=== PATIENT | male | born 1955 | race Caucasian/White ===

== ENCOUNTER → 2016-11-03 | Outpatient (CLI) | payer BC ==
--- NOTE | 2016-11-03 13:58 | CT ---
EXAMINATION TYPE: CT chest w con DATE OF EXAM: 11/03/2016 1:24 PM COMPARISON: CT neck 01/28/[address] 03/26/2016. HISTORY: 61-year-old male has no complaints at time of study. Follow up study for thymic CA. TECHNIQUE: Contiguous axial scanning of the chest after the administration of 100 mL of Omnipaque 300 . Coronal/sagittal reconstructions performed. CT DLP: 565mGycm. Automatic exposure control utilized for a dose reduction. FINDINGS: The heart is normal size without pericardial effusion. Minimal LAD calcifications are noted. Mild ectasia ascending aorta 3.6 cm. There is variant direct takeoff of the left vertebral artery dir ectly from the aortic arch. Mild tortuosity of the descending thoracic aorta is noted. No thoracic lymphadenopathy. There is some distortion of the anterior mediastinal fat, for example, axial image 24 suggesting prior surgical changes. Mild diffuse bronchial wall thickening. No consolidation or pleural effusion. There is a 6 mm left mi dlung pulmonary nodule along the major fissure which appears to have been present on the nondiagnosti c 03/26/[address] and should continue to be followed. Visualized upper abdomen shows a small hiatal hernia. Bones: Endplate spondylosis mid to lower thoracic spine. No osseous destructive process. IMPRESSION: 1. No suspicious mediastinal mass to suggest residual or recurrent thymic neoplasm. 2. A 6 mm left midlung pulmonary nodule is stable in retrospect from the nondiagnostic planning CT of 03/26/2016. Recommend continued follow-up to ensure 2 years of stability and a benign etiology. This can be performed at 6 and 18 months. 3. We note multiple prior CTs of the patient's neck. No dedicated prior CT of the chest is available. Clinical correlation is recommended as we were unable to obtain accurate history as to the reason fo r the patient's outside CT neck exams at the time of dictation.
== END | disposition home or self-care (01) ==
LOC: RADCTMAIN 12:53
PROVIDERS: ATTEND Radiology Radiation Oncology
DX: R91.1 Solitary pulmonary nodule (principal); D15.0 Benign neoplasm of thymus
CPT/HCPCS: 71260; Q9967

== ENCOUNTER → 2017-07-23 | Outpatient (CLI) | payer BC ==
[2017-07-23 09:22] LABS: Basophils % (A) 1 %; Eosinophils # (A) 0.3 k/uL (0-0.7); Eosinophils % (A) 6 %; HGB 11.9 gm/dL (13.0-17.5); Lymphocytes # (A) 0.9 k/uL (1.0-4.8); Lymphocytes % (A) 18 %; MCHC 31.4 g/dL (31.0-37.0); MCV 92.2 fL (80.0-100.0); Mean Platelet Volume 6.6; Monocytes # (A) 0.3 k/uL (0-1.0); Monocytes % (A) 5 %; Neutrophils # (A) 3.6 k/uL (1.3-7.7); Neutrophils % (A) 68 %; Platelet Count 555 k/uL (150-450); RBC 4.12 m/uL (4.30-5.90); RDW 13.8 % (11.5-15.5); WBC 5.3 k/uL (3.8-10.6)
[2017-07-23 10:49] LABS: ALT 35 U/L (21-72); AST 19 U/L (17-59); Albumin 4.1 g/dL (3.5-5.0); Alkaline Phosphatase 69 U/L (38-126); Anion Gap 11 mmol/L; Bilirubin, Delta 0.2 mg/dL (0.0-0.2); Bilirubin,Unconjugated 0.4 mg/dL (0.0-1.1); Blood Urea Nitrogen 17 mg/dL (9-20); Calcium 9.9 mg/dL (8.4-10.2); Carbon Dioxide 30 mmol/L (22-30); Chloride 104 mmol/L (98-107); Cholesterol 229 mg/dL (<200); Glucose 108 mg/dL (74-99); HDL Cholesterol 47 mg/dL (40-60); LDL Cholesterol,Calculated 169 mg/dL (0-99); Potassium 5.1 mmol/L (3.5-5.1); Sodium 145 mmol/L (137-145); Total Bilirubin 0.6 mg/dL (0.2-1.3); Triglycerides 65 mg/dL (<150)
[2017-07-23 11:00] LABS: T4, Free (Free Thyroxine) 0.82 ng/dL (0.78-2.19)
[2017-07-23 11:14] LABS: PSA Annual Screen 1.02 ng/mL (0.00-4.00)
[2017-07-23 16:25] LABS: Hemoglobin A1C 5.2 % (4.0-6.0)
== END | disposition home or self-care (01) ==
LOC: LABWHC1 08:49
PROVIDERS: ATTEND Internal Medicine Critical Care Medicine
DX: Z00.00 Encounter for general adult medical examination without abnormal findings (principal); C37 Malignant neoplasm of thymus; E55.9 Vitamin D deficiency, unspecified; Z12.5 Encounter for screening for malignant neoplasm of prostate; Z79.899 Other long term (current) drug therapy
CPT/HCPCS: 84439; 84481; 80061; 80053; 82248; 84443; 85025; 82306; 83036; 36415; G0103

== ENCOUNTER → 2017-08-06 | Outpatient (CLI) | payer BC ==
[2017-08-06 12:38] LABS: HCT 39.6 % (39.0-53.0); HGB 12.7 gm/dL (13.0-17.5); MCH 29.4 pg (25.0-35.0); MCHC 32.2 g/dL (31.0-37.0); MCV 91.3 fL (80.0-100.0); Mean Platelet Volume 6.2; Platelet Count 283 k/uL (150-450); RBC 4.33 m/uL (4.30-5.90); RDW 12.8 % (11.5-15.5); WBC 5.9 k/uL (3.8-10.6)
[2017-08-06 12:41] LABS: Partial Thromboplastin Time 24.3 sec (22.0-30.0)
[2017-08-06 12:43] LABS: Amorphous Sediment,Urine Rare /hpf; Appearance,Urine Cloudy (Clear); Bacteria,Urine Moderate /hpf; Bilirubin,Urine Negative (Negative); Blood,Urine Negative (Negative); Color,Urine Yellow; Glucose,Urine (UA) Negative (Negative); Ketones,Urine Negative (Negative); Leukocyte Esterase,Urine Negative (Negative); Mucus,Urine Rare /hpf; Nitrite,Urine Negative (Negative); PH, Urine 6.5 (5.0-8.0); Protein,Urine Trace (Negative); RBC,Urine 2 /hpf (0-5); Specific Gravity,Urine 1.018 (1.001-1.035); Squamous Epithelial Cell,Urine <1 /hpf (0-4); Urobilinogen,Urine <2.0 mg/dL (<2.0); WBC,Urine 3 /hpf (0-5)
[2017-08-06 12:52] LABS: ALT 40 U/L (21-72); AST 26 U/L (17-59); Albumin 4.5 g/dL (3.5-5.0); Alkaline Phosphatase 74 U/L (38-126); Anion Gap 11 mmol/L; Blood Urea Nitrogen 17 mg/dL (9-20); Calcium 9.8 mg/dL (8.4-10.2); Carbon Dioxide 29 mmol/L (22-30); Chloride 102 mmol/L (98-107); Glucose 100 mg/dL (74-99); Potassium 4.7 mmol/L (3.5-5.1); Sodium 142 mmol/L (137-145); Total Bilirubin 0.7 mg/dL (0.2-1.3); Total Protein 7.2 g/dL (6.3-8.2)
== END | disposition home or self-care (01) ==
LOC: LABPAT 11:25
PROVIDERS: ATTEND Orthopaedic Surgery
DX: Z01.818 Encounter for other preprocedural examination (principal); Z01.812 Encounter for preprocedural laboratory examination
CPT/HCPCS: 80053; 81001; 85027; 85610; 85730; 87070; 93005

== ENCOUNTER 2017-08-25 09:35 | Inpatient (IN) | payer BC ==
[~2017-08-25 09:35] MED LIST: ACETAMINOPHEN TAB 500 MG TAB PO ONE; DEXAMETHASONE SOD PHOSPHATE 10 MG/ML 1 ML VIAL IV ONE; LACTATED RINGERS 1,000 ML IV SCH; MELOXICAM 7.5 MG TAB PO ONE; MIDAZOLAM 2 MG/2 ML VIAL IV PRN; MORPHINE SULFATE 4 MG/ML SYRINGE IV PRN; ONDANSETRON 4 MG/2 ML VIAL IVP ONE; ROPIVACAINE 246.25 MG, EPINEPHrine 0.5 MG, KETOROLAC 30 MG, cloNIDine HCL/PF 80 MCG, WA... MISCELLANE ONE; SCOPOLAMINE 1.5MG/72HR PATCH TRANSDERM ONE; TRANEXAMIC ACID 1,000 MG in SODIUM CHLORIDE 0.9% 50 ML IVPB ONE; ceFAZolin IN SWFI 2 GM/20 ML SYRINGE IVP ONE
[2017-08-25] MEDS ORDERED: LIDOCAINE 1% 20 ML VIAL (10MG/ML) FOR IV START INTRADERMA ONE (10:01)
[2017-08-25] MEDS ORDERED: MIDAZOLAM 2 MG/2 ML VIAL IVP ONE ×2 (10:34→10:43)
[2017-08-25] MEDS ORDERED: ROPIVACAINE 1,100 MG, SODIUM CHLORIDE 0.9% 330 ML MISCELLANE PRN ×2 (10:51)
--- NOTE | 2017-08-25 10:52 | P.ONQ ---
Anesthesiology Proc Note - PNB - Peripheral Nerve Block Performed Left Adductor Canal Indication: Acute Post-Operative Pain, Requested by physician (Dr Juanjose Kelly ) Sedation Type: Sedate with meaningful contact maintained Preparation: Sterile Dressing Position: Supine Catheter: Indwelling Needle Types: Other (see comment) (Sandy) Needle Size: 100mm (4") Needle Gauge: 18 Technique: Ultrasound Injectate: 0.5% Ropivacaine (see comment for volume) (20cc) Blood Aspirated: No Pain Paresthesia on Injection Noted: No Resistance on Injection: Normal Events: Uneventful and Well Tolerated
[2017-08-25] MEDS ORDERED: KETAMINE 10 MG/ML 20 ML VIAL ONE (11:00)
[2017-08-25] MEDS ORDERED: MIDAZOLAM 2 MG/2 ML VIAL ONE (11:00)
[2017-08-25] MEDS ORDERED: PROPOFOL 10 MG/ML 20 ML VIAL IV ONE (11:00)
[2017-08-25] MEDS ORDERED: TRANEXAMIC ACID 1,000 MG/10 ML VIAL ONE (11:00)
[2017-08-25] MEDS ORDERED: fentaNYL (PF) 50 MCG/ML 2 ML AMP ONE (11:00)
[2017-08-25] MEDS ORDERED: SODIUM CHLORIDE 0.9% 100 ML BAG ONE (11:00)
[2017-08-25] MEDS ORDERED: ePHEDrine SULFATE/0.9% NACL/PF 50 MG/5 ML SYRINGE IV ONE (11:00)
[2017-08-25] MEDS ORDERED: GLYCOPYRROLATE 0.2 MG/ML 2 ML VIAL ONE (11:00)
[2017-08-25] MEDS ORDERED: LACTATED RINGERS 1,000 ML IV ONE ×2 (12:11)
[2017-08-25] MEDS ORDERED: ceFAZolin 1,000 MG in SODIUM CHLORIDE 0.9% 1,000 ML IRRIGATION ONE ×2 (12:19→12:20)
--- NOTE | 2017-08-25 12:42 | P.OP ---
Date of Procedure: 08/25/17 Preoperative Diagnosis: Severe osteoarthritis left knee Postoperative Diagnosis: Severe osteoarthritis left knee Procedure(s) Performed: Left total knee arthroplasty Implants: Conroy [employer] Nephew Oxinium femoral component size 7, left Conroy & Nephew Naomie II left nonporous tibial baseplate size 8 Conroy [employer] Nephew size 9 mm Legion XLPE dished articular insert, size 7-8 Conroy [employer]hew Naomie II resurfacing patellar component, 32 mm All components were cemented using Rohan bone cement.. The articulation is Oxinium on polyethylene. Anesthesia: spinal Surgeon: Juanjose Kelly Superintendent Renting Managing #1: Luli Wiggins Estimated Blood Loss (ml): 50 Pathology: other (Bone and cartilage) Condition: stable Disposition: PACU Indications for Procedure: After failure of conservative treatment we discussed the surgical and nonsurgical treatment options at length. Patient wishes to proceed with a total knee arthroplasty. Complications specific to this procedure were discussed at length, including but not limited to infection, bleeding, stiffness , and nerve injury. Patient is aware of all these complications and informed consent was obtained Operative Findings: The operative findings are consistent with severe osteoarthritis of the left knee Description of Procedure: Patient was seen in the preoperative area consent was reviewed and operative site was marked with a skin marker. An adductor canal pain catheter was placed by anesthesia in the preoperative area. Patient was then brought to the operating room and given preoperative antibiotics intravenously. A spinal anesthetic was administered by the anesthesia department. A tourniquet was placed on the upper thigh and the lower extremity was prepped and draped in usual sterile fashion. A gram of transexamic acid was given. A universal timeout was then performed which confirmed the patient's name, surgical site, ALLERGIES, and consent. The lower extremity was then exsanguinated and tourniquet was inflated to 250 mmHg. A standard and anterior midline approach to the knee was performed. The skin and subcutaneous tissue was dissected down to the patellar tendon. A medial parapatellar arthrotomy was then performed. The knee was then extended, the patellar was everted, and the knee was again flexed. Anterior horns of both menisci were excised, and a release was performed to the posterior medial aspect of the knee. On gross visual inspection, there was complete loss of articular cartilage in the medial and patellofemoral joint spaces. There was also significant cartilage damage in the lateral compartment. There were multiple periarticular osteophytes which were then removed with a Ronguer. The femoral canal was then opened with the appropriate drill, and the intramedullary femoral cutting guide was then placed and set for 4 of valgus. The distal femoral cutting block was then pinned in place, and the distal femur was then cut. The cutting block was then removed and the cut was checked for flatness. Next, the sizing guide was then placed and set for 3 external rotation based off of the epicondylar axis and Whitesides line. After the femur was sized, the appropriate 4-in-1 cutting block was then pinned in place. The anterior condyles were cut without notching. The posterior and chamfer cuts were performed while protecting the collateral ligaments. The cutting block was then removed, and the femoral canal was plugged with autologous bone. Attention was then directed to the tibia. The remaining ACL was removed with a Ronguer, and the tibia was then gently subluxed forward with a large bent knee retractor. Any remaining menisci was excised. The posterior lateral corner was cauterized in order to cauterize the lateral geniculate artery. The extra medullary tibial cutting guide was then placed, set for the appropriate rotation , slope, and depth of resection. The proximal tibia cutting guide was then pinned in place. Proximal tibia was then cut and sized. Next trials were then placed with the appropriate-sized insert. The knee was able to fully extend and flex to 130 and was stable throughout all range of motion. The knee was then extended, patella everted. Patella was then measured, and then using an osteotomy guide, the patella was cut at the appropriate level. The patella was then measured and drilled and the patella trial was then placed. The knee was then taken through range of motion with the patella trial and the patella tracked normally. The knee was then extended patella trial was then removed and the patella was everted. Knee was then flexed and lug holes were drilled through the femoral trial and the femoral trial was then removed. The tibial was then exposed, and the tibial broach guide was then pinned in place after it was set for the appropriate rotation to allow for the most coverage without overhang. The tibia was then reamed and broached. The cut surfaces of bone were then irrigated with pulsatile lavage. The posterior structures were injected with the ropivacaine solution. The knee was also irrigated with Irrisept solution. The components were then opened, the cement was mixed, and the components were then cemented in place. The cement was allowed to harden with the knee in full extension. While the cement was hardening, the remaining soft tissues were then injected with a ropivacaine solution, which consisted of 246.25 mg of ropivacaine, 0.5 mg of epinephrine, 30 mg of Toradol, 80 g of clonidine, and 48.45 mL of sterile water, for a total of 100 mL of fluid injected. After the cemented hardened. The tourniquet was released, and hemostasis was obtained. A second gram of transexamic acid was given. The knee was again irrigated. The knee was again taken through range of motion and found to be stable throughout all range of motion of 0-130 , and the patella tracked normally. The fascia was then closed with #2 strata fix suture. The subcutaneous tissue was closed with 3-0 Vicryl and 3-0 strata fix. Dermabond glue was used for the skin and placed with the knee in flexion. The patient was placed in a sterile silver dressing. Patient was then transferred to recovery room in stable condition. The actuarial assistant ONUR Leonard was required due the complexity surgery and the need for a skilled surgical instrument maker. She assisted in positioning, draping, retraction, and closure of the wound.
[2017-08-25] MEDS ORDERED: DIAZEPAM 5 MG TAB PO PRN ×2 (12:54)
[2017-08-25] MEDS ORDERED: HYDROmorphone 0.5 MG/0.5 ML SYRINGE IVP PRN ×2 (12:54)
[2017-08-25] MEDS ORDERED: NA PHOS,M-B/NA PHOS,DI-BA 133 ML ENEMA RECTAL PRN (12:54)
[2017-08-25] MEDS ORDERED: ONDANSETRON 4 MG/2 ML VIAL IVP PRN (12:54)
[2017-08-25] MEDS ORDERED: BISACODYL 10 MG SUPP RECTAL PRN (12:54)
[2017-08-25] MEDS ORDERED: NALOXONE 0.4 MG/ML 1 ML VIAL IV PRN (12:54)
[2017-08-25] MEDS ORDERED: HYDROcodone/APAP 5-325MG 1 EACH TAB PO PRN (12:54)
[2017-08-25] MEDS ORDERED: MAGNESIUM HYDROXIDE 2,400 MG/10 ML CUP PO PRN (12:54)
--- NOTE | 2017-08-25 13:48 | XR ---
EXAMINATION TYPE: XR knee limited LT DATE OF EXAM: 08/25/2017 CLINICAL HISTORY: Postoperative evaluation Two views of the left knee are submitted. Identified are changes of total knee arthroplasty with fem oral and tibial components appearing well seated. Postsurgical soft tissue changes are noted. Align ment is anatomic.
[2017-08-25 16:59] VITALS: BMI 26.9
[2017-08-25] MEDS: SODIUM CHLORIDE 0.9% 1,000 ML IV SCH (17:13)
[2017-08-25] MEDS: HYDROcodone/APAP 5-325MG 1 EACH TAB PO PRN ×2 (17:21→23:26)
[2017-08-25] MEDS: hydrOXYzine PAMOATE 25 MG CAP PO PRN ×2 (17:22→23:26)
[2017-08-25] MEDS: ceFAZolin IN SWFI 2 GM/20 ML SYRINGE IVP SCH (20:54)
[2017-08-25] MEDS: ASPIRIN 325 MG TAB PO SCH (20:54)
[2017-08-25] MEDS ORDERED: SENNOSIDES-DOCUSATE SODIUM 1 EACH TAB PO SCH (21:00)
[2017-08-26] MEDS: hydrOXYzine PAMOATE 25 MG CAP PO PRN ×2 (04:57→13:30)
[2017-08-26] MEDS: HYDROcodone/APAP 5-325MG 1 EACH TAB PO PRN ×2 (04:57→13:29)
[2017-08-26] MEDS: ceFAZolin IN SWFI 2 GM/20 ML SYRINGE IVP SCH (04:58)
[2017-08-26] MEDS: SODIUM CHLORIDE 0.9% 1,000 ML IV SCH (05:06)
[2017-08-26 08:04] LABS: Basophils % (A) 0 %; Eosinophils # (A) 0.1 k/uL (0-0.7); Eosinophils % (A) 1 %; HCT 33.5 % (39.0-53.0); HGB 10.6 gm/dL (13.0-17.5); Lymphocytes # (A) 1.4 k/uL (1.0-4.8); Lymphocytes % (A) 12 %; MCH 28.9 pg (25.0-35.0); MCHC 31.6 g/dL (31.0-37.0); MCV 91.4 fL (80.0-100.0); Mean Platelet Volume 6.2; Monocytes # (A) 0.9 k/uL (0-1.0); Monocytes % (A) 8 %; Neutrophils # (A) 8.5 k/uL (1.3-7.7); Neutrophils % (A) 77 %; Platelet Count 328 k/uL (150-450); RBC 3.67 m/uL (4.30-5.90); RDW 12.6 % (11.5-15.5)
[2017-08-26 08:15] VITALS: BP 113/64; PULSE 62; RESP 20; TEMP 98.3
--- NOTE | 2017-08-26 08:40 | P.DS ---
Providers Date of admission: 08/25/17 09:35 Expected date of discharge: 08/26/17 Attending physician: Juanjose Kelly Consults: 08/25/17 12:54 Consult Physician Routine Consulting Provider: Isaiah Chaparro Consult Reason/Comments: medical management Do you want consulting provider notified?: Yes Primary care physician: Stated None - Discharge Diagnosis(es) (1) Primary osteoarthritis of left knee Current Visit: Yes Status: Acute (2) S/P total knee arthroplasty Current Visit: Yes Status: Acute Hospital Course: This is a 62-year-old male with known history of degenerative arthritis of the left knee. The patient presents for evaluation. After discussion and consideration patient elects to proceed with total knee arthroplasty. The patient is seen preoperatively by Dr. Kelly and cleared for surgery. Patient is admitted to [facility] on 08/25/2017 for total knee arthroplasty. The procedures performed without complication or sequelae. The patient is doing well postoperatively. Labs and vital signs are stable on day of discharge. On day of discharge patient's knee incision is healing well. There is minimal erythema. There is no drainage noted at this time. There is minimal soft tissue swelling to the knee. Patient has full foot and ankle motion without difficulty or pain. Neurovascular status to the left lower extremity is intact. Patient is discharged home in good condition. Please see med rec for accurate list of home medications. Plan - Discharge Summary Discharge Rx Participant: Yes New Discharge Prescriptions: New Aspirin 325 mg PO BID #60 tab HYDROcodone/APAP 5-325MG [[place] 5-325] 1 - 2 tab PO Q4-6H PRN #90 tab PRN Reason: Pain Sennosides [Senokot] 1 tab PO BID #60 tablet No Action Multivitamins, Thera [Multivitamin (formulary)] 1 tab PO DAILY Acetaminophen Tab [Tylenol Tab] 650 mg PO Q6H PRN PRN Reason: Pain Simvastatin [Zocor] 20 mg PO DAILY Levothyroxine Sodium [Synthroid] 75 mcg PO DAILY Glucosamine Sulfate 2,000 mg PO DAILY Cholecalciferol [Vitamin D3] 1,000 unit PO DAILY Ascorbic Acid [Vitamin C] 1,000 mg PO DAILY Ferrous Sulfate [Iron] 325 mg PO DAILY Vitamin E 450 Unit 450 unit PO DAILY Discharge Medication List Acetaminophen Tab [Tylenol Tab] 650 mg PO Q6H PRN 08/18/17 [History] Multivitamins, Thera [Multivitamin (formulary)] 1 tab PO DAILY 08/18/17 [History ] Ascorbic Acid [Vitamin C] 1,000 mg PO DAILY 08/19/17 [History] Cholecalciferol [Vitamin D3] 1,000 unit PO DAILY 08/19/17 [History] Ferrous Sulfate [Iron] 325 mg PO DAILY 08/19/17 [History] Glucosamine Sulfate 2,000 mg PO DAILY 08/19/17 [History] Levothyroxine Sodium [Synthroid] 75 mcg PO DAILY 08/19/17 [History] Simvastatin [Zocor] 20 mg PO DAILY 08/19/17 [History] Vitamin E 450 Unit 450 unit PO DAILY 08/25/17 [History] Aspirin 325 mg PO BID #60 tab 08/26/17 [Rx] HYDROcodone/APAP 5-325MG [[place] 5-325] 1 - 2 tab PO Q4-6H PRN #90 tab 08/26/17 [ Rx] Sennosides [Senokot] 1 tab PO BID #60 tablet 08/26/17 [Rx] Follow up Appointment(s)/Referral(s): Juanjose Kelly DO [Doctor of Osteopathic Medicine] - 2 Weeks Ambulatory/Diagnostic Orders: Continuous Passive Motion (CPM) Machine [DME.AMB1] Time Frame: 3 Weeks, Location : Determined By Patient Activity/Diet/Wound Care/Special Instructions: Weightbearing as tolerated with a walker CPM 5-6h daily Leave dressing intact. May be removed by home care nurse in 7 days, 09/01/2017. May shower with dressing on. Call [facility] with questions or concerns [phone] Discharge Disposition: HOME WITH HOME HEALTH SERVICES
[2017-08-26] MEDS: ASPIRIN 325 MG TAB PO SCH (08:53)
[2017-08-26] MEDS ORDERED: MELOXICAM 7.5 MG TAB PO SCH (09:00)
--- NOTE | 2017-08-26 10:41 | P.CNPUL ---
History of Present Illness Consult date: 08/26/17 Reason for consult: other Chief complaint: Status post left total knee arthroplasty History of present illness: Consult dated August 26 2017 62-year-old male's I see is a primary. He has a history of hyperlipidemia hypothyroidism hyperparathyroidism, status post parathyroidectomy and malignant thymoma. The patient's medical problems are all well controlled his medications at home include vitamin E and Zocor multiple vitamins and Synthroid glucosamine iron vitamin D3 ascorbic acid Tylenol Senokot [place] and aspirin. He has no known ALLERGIES. He owns a car repair shop. Anyway, he is postop day #1 status post left total knee arthroplasty. The patient's walking the hallway doing relatively well. Feeling well. One of the orthopedic surgeons from [facility] did the surgery. Other than pain, and reduced mobility, he has no major complaints. Review of Systems A 12 point review of system is negative save for chronic left knee pain and knee swelling. Past Medical History Past Medical History: Hyperlipidemia, Osteoarthritis (OA), Thyroid Disorder Additional Past Medical History / Comment(s): NODULE ON THYROID, THYMUS CANCER , KIDNEY STONE History of Any Multi-Drug Resistant Organisms: None Reported Additional Past Surgical History / Comment(s): VASECTOMY, LEFT KNEE ARTHROTOMY, LEFT KNEE ARTHROSCOPIC, RIGHT KNEE ARTHROSCOPIC , LITHROTRIPSY, LEFT KNEE ARTHROPLASTY Past Anesthesia/Blood Transfusion Reactions: No Reported Reaction Past Psychological History: No Psychological Hx Reported Smoking Status: Never smoker Past Alcohol Use History: Daily Additional Past Alcohol Use History / Comment(s): 1 GLASS OF WINE DAILY Past Drug Use History: Marijuana Additional Drug Use History / Comment(s): OCCASIONAL USE - Past Family History Mother Family Medical History: No Reported History Medications and Allergies Home Medications Medication Instructions Recorded Confirmed Type Acetaminophen Tab [Tylenol Tab] 650 mg PO Q6H PRN 08/18/17 08/25/17 History Multivitamins, Thera [Multivitamin 1 tab PO DAILY 08/18/17 08/25/17 History (formulary)] Ascorbic Acid [Vitamin C] 1,000 mg PO DAILY 08/19/17 08/25/17 History Cholecalciferol [Vitamin D3] 1,000 unit PO DAILY 08/19/17 08/25/17 History Ferrous Sulfate [Iron] 325 mg PO DAILY 08/19/17 08/25/17 History Glucosamine Sulfate 2,000 mg PO DAILY 08/19/17 08/25/17 History Levothyroxine Sodium [Synthroid] 75 mcg PO DAILY 08/19/17 08/25/17 History Simvastatin [Zocor] 20 mg PO DAILY 08/19/17 08/25/17 History Vitamin E 450 Unit 450 unit PO DAILY 08/25/17 08/25/17 History Aspirin 325 mg PO BID #60 tab 08/26/17 Rx HYDROcodone/APAP 5-325MG [[place] 1 - 2 tab PO Q4-6H PRN #90 tab 08/26/17 Rx 5-325] Sennosides [Senokot] 1 tab PO BID #60 tablet 08/26/17 Rx Allergies Allergy/AdvReac Type Severity Reaction Status Date / Time No Known Allergies Allergy Verified 08/25/17 16:38 Physical Exam Osteopathic Statement: *. No significant issues noted on an osteopathic structural exam other than those noted in the History and Physical/Consult. Vitals: Vital Signs Temp Pulse Pulse Resp BP BP Pulse Ox 08/26/17 08:14 98.3 F 62 20 113/64 98 08/26/17 00:54 97.9 F 73 16 102/60 97 08/25/17 19:54 98.2 F 87 16 113/70 100 08/25/17 16:42 97.5 F L 88 16 139/71 97 08/25/17 15:31 85 16 97/54 98 08/25/17 15:01 74 16 107/61 97 08/25/17 14:15 77 16 110/60 97 08/25/17 14:02 82 16 111/59 97 08/25/17 13:46 79 16 113/62 97 08/25/17 13:34 78 16 118/63 98 08/25/17 13:10 82 16 114/61 100 08/25/17 12:58 97 F L 90 16 116/59 98 Intake and Output 08/25/17 08/26/17 08/26/17 22:59 06:59 14:59 Intake Total 520 Output Total 350 Balance -350 520 Intake: Intake, IV Titration 520 Amount Sodium Chloride 0.9% 1, 520 000 ml @ 65 mls/hr IV . [id number] KASH Rx#:[id number] Output: Urine 350 Other: # Voids 3 Weight 83.915 kg No acute distress, oriented 3. HEENT examination is grossly unremarkable. Mucous membranes are moist. No oral lesions. Neck supple. Full range of motion. No adenopathy thyromegaly or neck vein distention. Cardiovascular examination reveals regular rhythm rate. S1-S2 normal. No S3 or S4. No discernible murmur noted. Lungs reveal clear breath sounds. Her sounds are equal bilaterally. No adventitious lung sounds including wheezes rhonchi or crackles. Abdomen soft bowel sounds are heard. No masses or tenderness. Extremities are intact. Left knee is swollen and painful to palpation. Skin is without rash or lesion. Neurologic examination is brief but nonfocal. Results - Laboratory Findings CBC and BMP: 08/26/17 07:13 Abnormal lab findings: Abnormal Labs 08/26/17 07:13 WBC 11.0 H RBC 3.67 L Hgb 10.6 L Hct 33.5 L Neutrophils # 8.5 H - Diagnostic Findings Chest x-ray: image reviewed (Labs x-rays a medications are reviewed.) Assessment and Plan Assessment: Assessment Postop day #1, status post left total knee arthroplasty History of hyperlipidemia Hypothyroidism Malignant thymoma Hyperparathyroidism, status post parathyroidectomy. Plan: Plan dated 08/26/2017 Patient seemed be doing relatively well. He is walking the hallway. Feeling well. The patient's properly managed. Medications reviewed. Everything seems be ordered including his chronic medications. We'll continue to follow. Prognosis is good. Time with Patient: Greater than 30
--- NOTE | 2017-08-26 10:42 | P.PN ---
Progress Note - Text The patient is status post left adductor canal catheter placement. The catheter was placed for postoperative pain control, status post total left arthroplasty. Ropivacaine 0.2% is infusing at 8 mLs per hour. The patient has no complaints of left lower extremity numbness or weakness. Patient's VAS score is 1 -10. Assessment: Patient's adductor canal catheter is in place and working appropriately. Plan: continue infusion and adjust it as needed.
[2017-08-26] MEDS ORDERED: ATORVASTATIN 10 MG TAB PO SCH (21:00)
[2017-08-27] MEDS ORDERED: LEVOTHYROXINE 75 MCG TAB PO SCH (06:30)
== END 2017-08-26 15:29 | disposition home health service (06) | DRG 470 ==
LOC: 2ORMAIN 09:35 → 3SUR 16:06
PROVIDERS: ADMIT Orthopaedic Surgery; ATTEND Orthopaedic Surgery
PROC: 0SRD069 Replacement of Left Knee Joint with Oxidized Zirconium on Polyethylene Synthetic Substitute, Cemented, Open Approach (ICD-10-PCS; principal; 2017-08-25 11:00)
DX: M17.12 Unilateral primary osteoarthritis, left knee (principal); E03.9 Hypothyroidism, unspecified; E78.5 Hyperlipidemia, unspecified; E04.1 Nontoxic single thyroid nodule; Z85.238 Personal history of other malignant neoplasm of thymus; Z79.899 Other long term (current) drug therapy; Z79.82 Long term (current) use of aspirin
CPT/HCPCS: 85025; 88305; 88311

== ENCOUNTER → 2017-11-09 | Outpatient (CLI) | payer BC ==
--- NOTE | 2017-11-09 10:23 | CT ---
EXAMINATION TYPE: CT neck chest w con DATE OF EXAM: 11/09/2017 COMPARISON: CT neck and chest May 08, 2017 and older studies. HISTORY: Benign neoplasm of thymus progress study. CT DLP: 830.2 mGycm. Automated Exposure Control for Dose Reduction was Utilized. TECHNIQUE: CT scan of the thorax is performed following with IV Contrast, patient injected with 100 mL of Isovue 300. FINDINGS: NECK: There is redemonstration of partially calcified lobulated asymmetric soft tissue right epiglott is measuring roughly 1.1 x 0.9 cm axial image 50, this is not changed from most recent prior or older exams back to January 18, 2016. Remainder of the airway is patent. There is mild calcified plaque at bilateral carotid bulb level redemonstrated without significant valarie nosis. No significant change from prior. Patchy opacification right ethmoid sinuses is seen on current study with patchy dependent opacificati on dependently in right maxillary sinus noted. Scattered prominent but subcentimeter lymph nodes throughout the neck are redemonstrated bilaterally. No new suspicious greater than 1 cm adenopathy is clearly seen. LUNGS: The lungs are grossly clear, there is no concerning new parenchymal mass or nodule identified. There is stable 6 x 3 mm nodule or nodular opacity left midlung along the fissure axial image 42 lik tiffanie reflecting benign lymph node. There is dependent atelectasis and/or scarring centrally in both lo wer lobes. There is background mild underlying emphysematous change. There is no pleural effusion or pneumothorax seen. The tracheobronchial tree is patent. MEDIASTINUM: There are no greater than 1 cm hilar or mediastinal lymph nodes. No pericardial effusi on is seen. There is 4 vessel origin from aortic arch which is normal variant redemonstrated. Coronar y artery calcification is again seen which is noted marker for coronary artery disease. Ascending aor ta measures 3.6 cm in diameter unchanged from prior. No new suspicious mediastinal mass is identified . OTHER: Subcentimeter low dense lesion left kidney axial image 80 is presumed benign. Moderate multile andrew spurring in the spine is redemonstrated. IMPRESSION: No new suspicious mass or adenopathy is present to suggest neoplastic recurrence.
== END | disposition home or self-care (01) ==
LOC: RADCTMAIN 09:37
PROVIDERS: ATTEND Radiology Radiation Oncology
DX: D15.0 Benign neoplasm of thymus (principal)
CPT/HCPCS: 70491; 71260; Q9967

== ENCOUNTER → 2018-08-24 | Outpatient (CLI) | payer BC ==
[2018-08-24 11:00] LABS: Basophils % (A) 1 %; Eosinophils # (A) 0.2 k/uL (0-0.7); Eosinophils % (A) 5 %; HGB 14.4 gm/dL (13.0-17.5); Lymphocytes % (A) 26 %; MCH 29.7 pg (25.0-35.0); MCHC 32.8 g/dL (31.0-37.0); MCV 90.6 fL (80.0-100.0); Monocytes # (A) 0.3 k/uL (0-1.0); Monocytes % (A) 8 %; Neutrophils % (A) 56 %; Platelet Count 299 k/uL (150-450); RBC 4.86 m/uL (4.30-5.90); RDW 13.2 % (11.5-15.5); WBC 3.6 k/uL (3.8-10.6)
[2018-08-24 15:58] LABS: ALT 23 U/L (10-49); AST 25 U/L (14-35); Albumin/Globulin Ratio 2.14 (1.60-3.17); Alkaline Phosphatase 60 U/L (41-126); C Reactive Protein <0.4 mg/dL (0.0-0.8); Calcium 9.5 mg/dL (8.7-10.3); Carbon Dioxide 30.5 mmol/L (21.6-31.8); Chloride 105 mmol/L (96-109); Cholesterol 236 mg/dL (0-200); Globulin 2.1 g/dL (1.6-3.3); Glucose 109 mg/dL (70-110); Potassium 4.7 mmol/L (3.5-5.5); Sodium 141 mmol/L (135-145); Total Bilirubin 0.7 mg/dL (0.3-1.2); Total Protein 6.6 g/dL (6.2-8.2); Triglycerides <50.0 mg/dL (0.0-149.0); VLDL Calculation 9.98 mg/dL (5.00-40.00)
[2018-08-24 18:40] LABS: Hemoglobin A1C 5.8 % (4.0-6.0)
== END | disposition home or self-care (01) ==
LOC: LABWHC1 10:14
PROVIDERS: ATTEND Internal Medicine Critical Care Medicine
DX: Z00.00 Encounter for general adult medical examination without abnormal findings (principal); E03.9 Hypothyroidism, unspecified; E78.00 Pure hypercholesterolemia, unspecified; R07.9 Chest pain, unspecified; Z79.899 Other long term (current) drug therapy
CPT/HCPCS: 84439; 80061; 80053; 82248; 84443; 84484; 85025; 86140; 83036; 36415; G0103

== ENCOUNTER → 2018-11-16 | Outpatient (CLI) | payer BC ==
--- NOTE | 2018-11-16 09:17 | CT ---
EXAMINATION TYPE: CT neck chest w con DATE OF EXAM: 11/16/2018 COMPARISON: 11/09/2017 and 05/08/2017 HISTORY: 63-year-old male Benign neoplasm of thymus follow up. TECHNIQUE: Contiguous axial scanning of the neck and chest performed with IV Contrast, patient inject ed with 100 mL of Isovue 300. Coronal/sagittal reconstructions performed. CT DLP: 864.4 mGycm Automated exposure control for dose reduction was used. FINDINGS: Neck: Visualized intracranial structures shows dominant left vertebral artery, leftward nasal septal deviat ion, clear orbits and globes, paranasal sinuses, and mastoid air cells. Nasopharynx is clear. Nodular thickening measuring 1.2 x 0.7 cm along the right vallecular space with associated punctate c alcification remains unchanged back to 05/08/2017 suggesting some minimal tonsillar hypertrophy. Orop harynx otherwise clear. Epiglottis and prevertebral soft tissues are within normal limits. Glottic and subglottic structures as well as the tracheal column appear clear. Thyroid gland, bilateral submandibular glands, and bilateral parotid glands appear satisfactory. Some scattered prominent but not enlarged upper cervical lymph nodes. No cervical lymphadenopathy by CT size criteria. Mild to moderate atherosclerotic changes at the bilateral carotid bifurcations. Moderate disc/endplate degenerative change at C6-C7. CHEST: Heart normal size without pericardial effusion. Aorta normal caliber with variant direct takeoff of the left vertebral artery directly from the aorti c arch. No thoracic lymphadenopathy. Suspicious soft tissue nodularity along the anterior mediastinum prevasc ular fat. No consolidation or pleural effusion. Some strandy scarring or atelectasis in the lung bases. 6 mm le ft midlung pulmonary nodule remains unchanged compatible with a benign etiology. Tiny hiatal hernia. Generalized upper abdomen show similar mild thickening of the left adrenal gland without nodularity. Partially visualized cystic lesion of the pancreatic neck measuring 1.8 cm. This seems to be unchange d from 11/09/2017 but prior exams do not include this region for assessment. Additional precautionary one-year assessment can be performed. BONES: DISH within the mid thoracic spine. There is some symmetrical capsular hypertrophy of the bilateral s ternoclavicular joints. IMPRESSION: 1. NECK AND CHEST WITHOUT SUSPICIOUS LYMPHADENOPATHY OR MASS TO SUGGEST NEOPLASTIC RECURRENCE. NODULA RITY IN THE RIGHT VALLECULAR SPACE REMAINS UNCHANGED SUGGESTING MINIMAL TONSILLAR HYPERTROPHY. 2. PARTIALLY VISUALIZED 1.8 CM CYSTIC LESION OF THE PANCREATIC NECK WAS PRESENT BACK ON 11/09/2017 BUT PRIOR EXAMS DID NOT INCLUDE THIS REGION FOR ASSESSMENT. PRECAUTIONARY ONE YEAR FOLLOW-UP CAN BE PERF ORMED.
== END ==
LOC: RADCTMAIN 07:31
PROVIDERS: ATTEND Radiology Radiation Oncology
DX: D49.89 Neoplasm of unspecified behavior of other specified sites (principal)
CPT/HCPCS: 70491; 71260; Q9967

== ENCOUNTER → 2019-11-28 | Outpatient (CLI) | payer BC ==
--- NOTE | 2019-11-28 11:52 | CT ---
EXAMINATION TYPE: CT chest abdomen wo/w con DATE OF EXAM: 11/28/2019 COMPARISON: 11/16/2018 and 11/09/2017 HISTORY: Benign neoplasm of thymus. CT DLP: 2476.27 mGycm. Automated Exposure Control for Dose Reduction was Utilized. CONTRAST: CT scan of the thorax, abdomen and pelvis is performed without and with IV Contrast, patient injected with 100 mL of Isovue M300. FINDINGS: LUNGS: Stable intrafissural lymph node is noted on the left. Punctate 2 mm solid pulmonary nodule the peripheral left upper lobe on image 25 is also stable. No new suspicious nodule. Atelectasis and/or scarring is seen medially of the lower lobes. There is no pleural effusion or pneumothorax seen. The tracheobronchial tree is patent. MEDIASTINUM: There are no greater than 1 cm hilar or mediastinal lymph nodes. No pericardial effusi on is seen. Mild coronary artery calcifications. Incidentally noted direct origin of the left verteb ral artery from the aortic arch, normal anatomic variant. LIVER/GB: Hepatic parenchyma is diffusely hypoattenuated in comparison to that of the spleen, most co mmonly seen in hepatic steatosis. This finding limits evaluation for hepatic masses. 2 small to accur ately characterize 3 mm hypoattenuated hepatic lesion is marked on series 22 image 25 and is better s een on today's imaging on the prior. No intrahepatic biliary ductal dilatation. No cholelithiasis. PANCREAS: There is a stable 1.8 cm cystic lesion of the pancreatic neck in comparison to prior exams dating back to 11/09/2017 with no new significant pancreatic ductal dilatation. This mass appears cont iguous with the main pancreatic duct and likely represents a sidebranch IPMN. SPLEEN: No significant abnormality is seen. ADRENALS: Adrenal glands are unchanged with slight nodular thickening. KIDNEYS: Kidneys enhance and excrete symmetrically other than ar too small to accurately characterize 7 mm hypoattenuated left lower pole renal lesion. No hydronephrosis. BOWEL: Very small hiatal hernia is redemonstrated. Few scattered diverticula without pericolonic fat stranding. Appendix is air-filled and within normal limits. Oral contrast does not fill the colon, li miting evaluation of the colon. LYMPH NODES: No greater than 1cm abdominal lymph nodes are appreciated. OSSEOUS STRUCTURES: Findings again of diffuse idiopathic skeletal hyperostosis are seen. IMPRESSION: 1. No new thoracic adenopathy or suspicious soft tissue density in the superior mediastinum. 2. Stable cystic pancreatic lesion dating back to 2018 favored to represent an IPMN. Reimaging is rec ommended annually until stability is indeterminate for 5 years. Ensure negative CA-19-9. 3. Mild degree hepatic steatosis.
--- NOTE | 2019-11-28 12:10 | CT ---
EXAMINATION TYPE: CT soft tissue neck wo/w con DATE OF EXAM: 11/28/2019 HISTORY: Benign neoplasm of thymus. COMPARISON: 11/16/2018 CT DLP: 1049.97 mGycm. Automated Exposure Control for Dose Reduction was Utilized. TECHNIQUE: CT scan of the neck is performed without and with IV Contrast, patient injected with 100 mL of Isovue M300, axial images are obtained, coronal and sagittal reformatted images are reviewed. FINDINGS: Airway: Again there is asymmetric nodular density along the lateral vallecula with ill-defined border s measuring approximately 1.3 x 0.6 cm containing internal calcification. This could represent a poly p, tonsillar hypertrophy, or neoplasm however no significant interval growth is seen. Parotid/submandibular glands: No gross abnormality seen. Carotid/Vascular Structures: Mild to moderate mixed atherosclerosis of the carotid bulbs is again not ed. Osseous Structures: Moderate multilevel degenerative disc disease is seen of the cervical spine most pronounced at C5-C6 and C6-C7 with multiple possible disc herniations and/or disc osteophyte complexe s. Other: No cervical lymphadenopathy by short axis size criteria. Leftward nasal septal deviation is in cidentally seen. Left vertebral artery is noted to be dominant. Numerous dental fillings and dental d isease throughout. IMPRESSION: 1. No new adenopathy within the neck. No interval size growth of the asymmetric nodular density in th e right lateral vallecula. Possibilities are nodular hyperplasia, polyp, or neoplasm. 2. Moderate degenerative disc disease of the cervical spine with multiple possible disc herniations. If there is further clinical concern MRI cervical spine could be performed.
== END | disposition home or self-care (01) ==
LOC: RADCTMAIN 10:02
PROVIDERS: ATTEND Radiology Radiation Oncology
DX: K76.0 Fatty (change of) liver, not elsewhere classified (principal); K86.2 Cyst of pancreas; D15.0 Benign neoplasm of thymus; Z92.3 Personal history of irradiation
CPT/HCPCS: 70492; 71270; 74170; Q9967 ×2

== ENCOUNTER → 2019-12-02 | Outpatient (CLI) | payer BC | END | disposition home or self-care (01) | LOC: LABWHC1 09:46 | PROVIDERS: ATTEND Radiology Radiation Oncology | DX: D15.0 Benign neoplasm of thymus (principal); Z92.3 Personal history of irradiation | CPT/HCPCS: 36415; 86301 ==

== ENCOUNTER → 2020-11-28 | Outpatient (CLI) | payer MEDICARE, BC ==
[2020-11-28 07:25] LABS: African American GFR (CKD) >90 (>60 ml/min/1.73 sqM); Blood Urea Nitrogen 22 mg/dL (9-20); Non-African American GFR(CKD) >90 (>60 ml/min/1.73 sqM)
--- NOTE | 2020-11-28 09:09 | CT ---
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 Coronal/sagittal reconstructions performed. CT DLP: 3228 mGycm Automated exposure control for dose reduction was used. FINDINGS: Visualized intracranial structures, orbits and globes, mastoid air cells, and paranasal sinuses appea r clear. There is leftward nasal septal deviation. Nasopharynx appears clear. Stable 1.1 cm nodular soft tissue lobulation along the right base of the tongue/right tonsillar parag r extending into the lateral right vallecular space containing a punctate calcification. Oropharynx a re otherwise clear. Epiglottis and prevertebral soft tissues are satisfactory. Asymmetric soft tissue thickening inferior left aryepiglottic fold, axial image 63 appears slightly m ore pronounced. Gliotic and subglottic structures as well as the tracheal column are otherwise clear. Thyroid gland, submandibular glands, and parotid glands are satisfactory. No cervical lymphadenopathy. Chest reported separately. Moderate degenerative disc disease and facet arthropathy especially mid to lower cervical spine. Unch anged prominent arachnoid granulation along the midline occipital bone. IMPRESSION: 1. UNCHANGED 1.1 CM SOFT TISSUE NODULARITY CONTAINING A PUNCTATE CALCIFICATION AT THE RIGHT BASE OF T HE TONGUE/RIGHT TONSILLAR PILLAR COULD REFLECT TONSILLAR HYPERTROPHY. 2. ASYMMETRIC SOFT TISSUE THICKENING OF THE INFERIOR LEFT ARYEPIGLOTTIC FOLD APPEARS MORE PRONOUNCED. DIRECT VISUALIZATION CAN EXCLUDE A MUCOSAL LESION HERE.
--- NOTE | 2020-11-28 09:25 | CT ---
EXAMINATION TYPE: CT chest abdomen wo/w con DATE OF EXAM: 11/28/2020 COMPARISON: 11/28/2019 and 11/09/2017 HISTORY: 65-year-old male D15.0, thymic neoplasm, Cancer of thymus gland TECHNIQUE: Contiguous axial scanning of the chest and abdomen before and after administration of 100 ml Omnipaque 300 IV contrast. Delayed images through the kidneys and coronal/sagittal reconstruction s performed. CT DLP: 3228 mGycm Automated exposure control for dose reduction was used. FINDINGS: CHEST: Heart normal size without pericardial effusion. Scattered LAD coronary artery calcifications are note d. Mild ectasia of the aortic root 3.6 cm. Variant direct takeoff of the left vertebral artery directly from the aortic arch. No thoracic lymphadenopathy by CT size criteria. No abnormal soft tissue within the anterior mediasti num. Stable 3 mm pulmonary nodule peripheral left upper lobe, axial image 23. Stable 6 mm nodule along the left major fissure in the mid to lower lung, axial image 40, likely intr afissural lymph node. There is some strandy atelectasis or scarring in the lower lungs. Some dependent secretions/debris noted within the right mainstem bronchus. ABDOMEN: Small hiatal hernia. Liver mildly enlarged at 18.3 cm. No focal liver lesion. Portal venous system appears patent. No bili janice ductal dilatation. Gallbladder, adrenal glands, right kidney, and spleen within normal limits. Stable 1 cm cyst lower pole left kidney. 3 mm nonobstructive calculus mid pole of the left kidney. Redemonstrated 2.0 X 1.8 cm cystic lesion, possible IPMN involving the neck of the pancreas. On 2019, this is measured at 1.7 x 1.2 cm and may be slightly larger now. No dilated small bowel, free fluid, free air. Scattered [id number] stool. Scattered diverticula r change along the left side of the colon. Pelvis not imaged. BONES: [facility] within the mid to lower thoracic spine. Facet arthropathy lower lumbar spine. IMPRESSION: 1. NO NEW THORACIC LYMPHADENOPATHY/MASS OR NEW PULMONARY NODULE TO SUGGEST RECURRENCE/METASTATIC DISE ASE. 2. REDEMONSTRATED CYSTIC LESION OF THE PANCREATIC NECK, POSSIBLE IPMN. IT APPEARS TO MEASURE SLIGHTLY LARGER AT 2.0 X 1.8 CM VERSUS 1.7 X 1.2 CM, PREVIOUSLY. CONTINUE ANNUAL SURVEILLANCE. IF THERE IS FU RTHER ENLARGEMENT, MRI AND MRCP CAN FURTHER EVALUATE. 3. SMALL HIATAL HERNIA.
== END | disposition home or self-care (01) ==
LOC: RADCTMAIN 06:32
PROVIDERS: ATTEND Radiology Radiation Oncology
DX: C37 Malignant neoplasm of thymus (principal); K44.9 Diaphragmatic hernia without obstruction or gangrene; K86.2 Cyst of pancreas
CPT/HCPCS: 82565; 84520; 70492; 71270; 74170; 36415; Q9967

== ENCOUNTER → 2021-09-25 | Outpatient (CLI) | payer MEDICARE, BC ==
[2021-09-26 00:34] LABS: Chol/HDL Ratio 4.06 Ratio; LDL Cholesterol,Calculated 174.9 mg/dL (0.0-131.0); VLDL Calculation 12.74 mg/dL (5.00-40.00)
== END | disposition home or self-care (01) ==
LOC: LABWHC1 08:31
PROVIDERS: ATTEND Internal Medicine Critical Care Medicine
DX: E78.5 Hyperlipidemia, unspecified (principal); E03.9 Hypothyroidism, unspecified
CPT/HCPCS: 36415; 80061; 84439; 84443

== ENCOUNTER 2021-10-28 08:42 | Day surgery (SDC) | payer MEDICARE, BC ==
[2021-10-24 15:28] VITALS: BMI 27.2
--- NOTE | 2021-10-28 07:51 | P.GSHP ---
History of Present Illness H&P Date: 10/28/21 Chief Complaint: right inguinal hernia 66-year-old male presents today for elective repair right inguinal hernia. Patient first foulness late last year. Mild pain at times. No symptoms on the left side. No history of previous hernias. 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 , KIDNEY STONES History of Any Multi-Drug Resistant Organisms: None Reported Past Surgical History: Joint Replacement, Orthopedic Surgery Additional Past Surgical History / Comment(s): VASECTOMY, LEFT KNEE ARTHROTOMY, LEFT KNEE ARTHROSCOPIC, RIGHT KNEE ARTHROSCOPIC , LITHROTRIPSY, LEFT KNEE ARTHROPLASTY, thymus removed Past Anesthesia/Blood Transfusion Reactions: No Reported Reaction Smoking Status: Never smoker - Past Family History Mother Family Medical History: No Reported History Medications and Allergies Home Medications Medication Instructions Recorded Confirmed Type Multivitamins, Thera [Multivitamin 1 tab PO DAILY 08/18/17 10/24/21 History (formulary)] Ascorbic Acid [Vitamin C] 1,000 mg PO DAILY 08/19/17 10/24/21 History Cholecalciferol [Vitamin D3] 1,000 unit PO DAILY 08/19/17 10/24/21 History Glucosamine Sulfate 1,500 mg PO DAILY 08/19/17 10/24/21 History Levothyroxine Sodium [Synthroid] 125 mcg PO DAILY 08/19/17 10/24/21 History Vitamin E [Vitamin E (1000 Iu = 1,000 unit PO DAILY 08/25/17 10/24/21 History 450 MG)] Allergies Allergy/AdvReac Type Severity Reaction Status Date / Time No Known Allergies Allergy Verified 10/24/21 15:24 Surgical - Exam Physical exam: General: Well-developed, well-nourished HEENT: Normocephalic, sclerae nonicteric Abdomen: Nontender, nondistended, reducible right inguinal hernia Extremities: No edema Neuro: Alert and oriented Assessment and Plan (1) Right inguinal hernia Narrative/Plan: 66-year-old male with reducible right inguinal hernia. We'll proceed with laparoscopic da Duarte assisted repair right inguinal hernia with mesh, possible open, possible bilateral. Risks of bleeding, infection, recurrence, bladder and bowel injury, numbness, nerve injury, conversion to an open procedure were discussed with the patient. The patient understands and wishes to proceed. Status: Acute Code(s): K40.90 - UNIL INGUINAL HERNIA, W/O OBST OR GANGR, NOT SPCF RECUR OMED Code(s): 111334182
[~2021-10-28 08:42] MED LIST changes: -ACETAMINOPHEN TAB 500 MG TAB PO ONE; +ACETAMINOPHEN TAB 500 MG TAB PO PRN; -DEXAMETHASONE SOD PHOSPHATE 10 MG/ML 1 ML VIAL IV ONE; +DEXAMETHASONE SOD PHOSPHATE 4 MG/ML 1 ML VIAL IV ONE; +HEPARIN SODIUM,PORCINE/PF 5,000 UNIT/0.5 ML SYRINGE SQ PRN; +HYDROmorphone 0.5 MG/0.5 ML SYRINGE IVP PRN; -MELOXICAM 7.5 MG TAB PO ONE; -MIDAZOLAM 2 MG/2 ML VIAL IV PRN; -MORPHINE SULFATE 4 MG/ML SYRINGE IV PRN; -ROPIVACAINE 246.25 MG, EPINEPHrine 0.5 MG, KETOROLAC 30 MG, cloNIDine HCL/PF 80 MCG, WA... MISCELLANE ONE; -SCOPOLAMINE 1.5MG/72HR PATCH TRANSDERM ONE; -TRANEXAMIC ACID 1,000 MG in SODIUM CHLORIDE 0.9% 50 ML IVPB ONE; -ceFAZolin IN SWFI 2 GM/20 ML SYRINGE IVP ONE
[2021-10-28 09:51] LABS: Basophils % (A) 1 %; Eosinophils # (A) 0.3 k/uL (0-0.7); Eosinophils % (A) 5 %; HCT 45.1 % (39.0-53.0); HGB 14.9 gm/dL (13.0-17.5); Lymphocytes # (A) 1.2 k/uL (1.0-4.8); Lymphocytes % (A) 23 %; MCH 30.2 pg (25.0-35.0); MCHC 33.2 g/dL (31.0-37.0); Mean Platelet Volume 6.6; Monocytes # (A) 0.3 k/uL (0-1.0); Monocytes % (A) 6 %; Neutrophils # (A) 3.3 k/uL (1.3-7.7); Neutrophils % (A) 62 %; Platelet Count 330 k/uL (150-450); RBC 4.96 m/uL (4.30-5.90); RDW 13.3 % (11.5-15.5); WBC 5.3 k/uL (3.8-10.6)
[2021-10-28] MEDS ORDERED: TAMSULOSIN 0.4 MG CAP.ER.24H PO STA (10:25)
[2021-10-28] MEDS ORDERED: TAMSULOSIN 0.4 MG CAP.ER.24H PO ONE (10:28)
[2021-10-28] MEDS ORDERED: KETOROLAC 15 MG/ML 1 ML VIAL ONE (10:42)
[2021-10-28] MEDS ORDERED: PROPOFOL 10 MG/ML 20 ML VIAL IV ONE (10:42)
[2021-10-28] MEDS ORDERED: fentaNYL (PF) 50 MCG/ML 2 ML AMP ONE (10:42)
[2021-10-28] MEDS ORDERED: LIDOCAINE 1% INJ 10MG/ML (20 ML MDV) ONE (10:42)
[2021-10-28] MEDS ORDERED: MIDAZOLAM 2 MG/2 ML VIAL ONE (10:42)
[2021-10-28] MEDS ORDERED: GLYCOPYRROLATE 0.2 MG/ML 2 ML VIAL ONE (10:42)
[2021-10-28] MEDS ORDERED: ROCURONIUM 10 MG/ML (5 ML VIAL) IV ONE (10:42)
[2021-10-28] MEDS ORDERED: NEOSTIGMINE 1 MG/ML 10 ML VIAL ONE (10:42)
[2021-10-28] MEDS ORDERED: BUPIVACAINE (PF) 0.25% 30 ML VIAL SQ ONE ×2 (11:09→11:14)
[2021-10-28] MEDS ORDERED: LACTATED RINGERS 1,000 ML IV ONE (12:47)
[2021-10-28 13:08] VITALS: RESP 16; TEMP 98.3
--- NOTE | 2021-10-28 13:09 | P.OP ---
Date of Procedure: 10/28/21 Procedure(s) Performed: PREOPERATIVE DIAGNOSIS: Reducible right inguinal hernia POSTOPERATIVE DIAGNOSIS: Reducible bilateral inguinal hernia PROCEDURE: Laparoscopic da Duarte assisted repair of bilateral inguinal hernia with mesh SURGEON: Dr. Ivy ANESTHESIA: General OPERATIVE PROCEDURE DETAILS: Patient was placed in the operating table in the supine position. The patient was placed under general anesthesia. The abdomen was prepped and draped in usual sterile fashion. A small curvilinear supraumbi lical incision was made. The fascia was retracted anteriorly with Pearl forceps. The Veress needle was inserted. The saline drop test was normal. Insufflation took place to 15 mmHg. An 8 mm trocar was placed into the peritoneal cavity. 2 additional 8 mm trochars were placed in the right upper quadrant and left upper quadrant under visualization. The robotic arms were then brought in and docked into place. The fenestrated bipolar was used in the left arm and the laparoscopic clau was utilized in the right arm. A 30 8 mm scope was used in the up position. The peritoneal cavity was inspected. The patient had a moderate-sized right inguinal hernia and a small left inguinal hernia noted as well. The right side was first addressed. The peritoneum was incised in a horizontal fashion cephalad to the internal inguinal ring. Following that careful dissection of the preperitoneal space took place. This took place using both electrocautery, sharp dissection but primarily blunt di ssection. Visualization of the pubic tubercle and Satinder's ligament took place medially. Full dissection took place laterally as well. The hernia sac was fully dissected. At that time the dissection of the peritoneum was taken across the midline to the left. The preperitoneal space on the left-hand side was dissected in similar fashion reducing the hernia quite easily. Both right and left side were indirect inguinal hernias. Once we had adequate space the extra- large Bard 3-D mid mesh was advanced into the preperitoneal space bilaterally and flattened out appropriately to cover all potential hernia sites. A 2-0 vlock suture was then used to secure both portions of mesh to the midline rectus. The peritoneal defect was then closed using 2 separate absorbable 2-0 VLok sutures. The hernia sacs were incorporated into the peritoneal closure to help prevent future recurrence. The pneumoperitoneum was then evacuated. The skin of all 3 sites was closed using a 4-0 Monocryl stitch. Skin glue was then applied. TYPE OF MESH USED: Extra-large 5 x 7" Bard 3-D mid LOCATION OF MESH: Preperitoneal FIXATION: 20V lock suture PREOPERATIVE DISCUSSION ON SMOKING CESSASTION: Yes PREOPERATIVE DISCUSSION ON MORBID OBESITY: Yes PREOPERATIVE DISCUSSION ON APPROPRIATE USE OF NARCOTIC USE: Yes PREOPERATIVE EDUCATION: Multi Modal, Smoking Cessation and Weight Loss with BMI over 35. DISPOSITION: Stable to recovery room
[2021-10-28] MEDS ORDERED: ACETAMINOPHEN TAB 325 MG TAB PO SCH (13:15)
[2021-10-28 14:27] VITALS: BP 130/81; PULSE 69
[2021-10-28] MEDS ORDERED: IBUPROFEN 600 MG TAB PO SCH (16:15)
== END 2021-10-28 15:01 | disposition home or self-care (01) ==
LOC: OR 08:42
PROVIDERS: ATTEND Surgery
DX: K40.20 Bilateral inguinal hernia, without obstruction or gangrene, not specified as recurrent (principal); E78.5 Hyperlipidemia, unspecified; M19.90 Unspecified osteoarthritis, unspecified site; E04.1 Nontoxic single thyroid nodule; Z92.3 Personal history of irradiation; Z85.238 Personal history of other malignant neoplasm of thymus; Z79.890 Hormone replacement therapy; Z87.442 Personal history of urinary calculi; Z96.652 Presence of left artificial knee joint; Z98.890 Other specified postprocedural states; Z98.52 Vasectomy status
CPT/HCPCS: 85025; 49650; C1781 ×2; J2250; J1100; J2710; J0690; J2405; J2001; J3010; J1885; J2704; J1644

== ENCOUNTER → 2021-12-11 | Outpatient (CLI) | payer MEDICARE, BC ==
[2021-12-11 11:29] LABS: African American GFR (CKD) >90 (>60 ml/min/1.73 sqM); Blood Urea Nitrogen 20 mg/dL (9-20); Non-African American GFR(CKD) >90 (>60 ml/min/1.73 sqM)
--- NOTE | 2021-12-12 11:20 | CT ---
EXAMINATION TYPE: CT soft tissue neck wo/w con DATE OF EXAM: 12/11/2021 COMPARISON: 11/28/2020 HISTORY: Benign neoplasm thymus CT DLP: 3529 mGycm CONTRAST: Patient injected with 100 ml mL of Isovue 300. TECHNIQUE: Axial images at 3 mm thick sections. Reconstructed images in the coronal plane and sagitt al plane are reviewed. FINDINGS: The thymus is out of the field of view on this exam. Limited CT sections are obtained the lung apices. The lung apices appear clear. CT neck: The torus tubarius and fossa of Rosenmuller are normal. Installation Manager spaces are normal. Para nasal sinuses and mastoid air cells within the field of view are clear. Parotid glands appear normal and symmetrical. Submandibular glands, are normal. Parapharyngeal spac es are normal. No suspicious adenopathy is evident. The asymmetry within the hypopharynx which contains a calcification on the right is stable in appeara nce. No underlying mass is identified. Vocal cord level appear symmetrical. The thyroid is not well visualized. There may be some residual tissue in the posterior thyroid beds b ilaterally. No suspicious masses evident. Degenerative disc changes are within the mid to lower cervical spine. IMPRESSIONS: 1. No suspicious abnormality CT soft tissue neck.
--- NOTE | 2021-12-12 13:12 | CT ---
EXAMINATION TYPE: CT chest abdomen wo/w con DATE OF EXAM: 12/11/2021 INDICATION: Benign neoplasm thymus COMPARISON: 11/28/2020 CT DLP: 3529 mGycm CONTRAST: Performed with Oral Contrast and without and with IV Contrast, patient injected with 100 ml mL of Iso ruben 300. TECHNIQUE: Axial images at 5 mm thick sections. Reconstructed images in the coronal plane. Delayed images through the kidneys. FINDINGS: CT CHEST: Portion of the thyroid visualized is normal. No thymic masses are identified. Punctate nodules in the lateral left upper lung field. Series 11 image 24, present previously. Suspec damon intrafissural lymph node, series 11 image 40, stable in appearance from prior exam No enlarged mediastinal or hilar adenopathy is evident. The ascending aorta diameter at the level of the main pulmonary artery is 4.0 cm. The main pulmonary artery diameter at the bifurcation is 2.5 cm. Minimal coronary artery calcification is present. CT ABDOMEN: Liver: Normal Spleen: Normal Pancreas: Hypodense area at the neck of the pancreas estimated at 1.3 x 1.7 cm on current exam. Previ ous measurement 2.0 x 1.8. Adrenal glands: The adrenal glands are normal. Gallbladder: Normal Kidneys: No masses are evident. No hydronephrosis is present. No cysts are present. There is a 0.4 cm nonobstructing renal stone in the lateral left mid kidney. Aorta: Vascular calcification is within the aorta. Inferior vena cava: Normal. Loops of bowel distended with oral contrast appear unremarkable. There are loops of bowel lacking ora l contrast which limits their evaluation. IMPRESSIONS: 1. No suspicious recurrent or residual thymic mass. 2. Stable punctate nodule left midlung. 3. Nonobstructing 0.4 cm left renal stone. 5. 4.0 cm ascending thoracic aortic aneurysm. 6. Diminished size of the hypoechoic pancreatic neck lesion.
== END | disposition home or self-care (01) ==
LOC: RADCTMAIN 10:29
PROVIDERS: ATTEND Radiology Radiation Oncology
DX: Z08 Encounter for follow-up examination after completed treatment for malignant neoplasm (principal); D15.0 Benign neoplasm of thymus; I71.2 Thoracic aortic aneurysm, without rupture; Z92.3 Personal history of irradiation
CPT/HCPCS: 82565; 84520; 70492; 71270; 74170; 36415; Q9967

== ENCOUNTER → 2022-01-10 | Outpatient (CLI) | payer MEDICARE, BC ==
[2022-01-10 14:55] LABS: HDL Cholesterol 68.8 mg/dL (40.00-60.00); Triglycerides 40.7 mg/dL (0.00-149.00)
[2022-01-10 15:15] LABS: Chol/HDL Ratio 3.18 Ratio
== END | disposition home or self-care (01) ==
LOC: LABWHC1 09:26
PROVIDERS: ATTEND Internal Medicine Critical Care Medicine
DX: E78.5 Hyperlipidemia, unspecified (principal)
CPT/HCPCS: 36415; 80061; 83721

== ENCOUNTER → 2022-07-03 | Outpatient (CLI) | payer MEDICARE, BC ==
[2022-07-03 17:32] LABS: African American GFR (CKD) >90 (>60 ml/min/1.73 sqM); Blood Urea Nitrogen 24 mg/dL (9-20); Non-African American GFR(CKD) >90 (>60 ml/min/1.73 sqM)
--- NOTE | 2022-07-03 18:51 | CT ---
EXAMINATION TYPE: CT chest w con DATE OF EXAM: 07/03/2022 COMPARISON: 12/11/2021 HISTORY: abnormal finding of lung field. pt has occasional pain in right lower side of chest. CT DLP: 380.4 mGycm, Automated exposure control for dose reduction was used. CONTRAST: Performed injected with 100ML mL of Isovue 300. TECHNIQUE: Axial images were obtained at 5 mm thick sections. Reconstructed images are reviewed on [email or web address] computer in the coronal plane. FINDINGS: Portion of the thyroid visualized is normal. No suspicious lung nodules or focal infiltrates are present. Stable punctate nodules in the lateral l eft lung. Series 3 image 25 in series 3 image 41. Minimal pneumonitis changes or scarring adjacent to the mid thoracic spine. Stable from comparison. No enlarged mediastinal or hilar adenopathy is evident. The ascending aorta diameter at the level o f the main pulmonary artery is 4.0 cm. The main pulmonary artery diameter at the bifurcation is 2.8 cm. Osseous structures appear normal. Limited CT sections are obtained through the upper abdomen. Abdomen is essentially unremarkable. IMPRESSIONS: 1. Stable punctate nodules left lung. 2. No suspicious change to account for right lower chest pain
== END | disposition home or self-care (01) ==
LOC: RADCTMAIN 16:53
PROVIDERS: ATTEND Internal Medicine Critical Care Medicine
DX: R91.8 Other nonspecific abnormal finding of lung field (principal)
CPT/HCPCS: 82565; 84520; 71260; 36415; Q9967

== ENCOUNTER → 2023-08-14 | Outpatient (CLI) | payer MEDICARE, BC ==
[2023-08-14 16:03] LABS: Basophils # (A) 0.05 X 10*3/uL (0.00-0.10); Eosinophils % (A) 3.8 %; HCT 42.6 % (39.6-50.0); HGB 13.8 g/dL (13.0-17.0); Lymphocytes # (A) 1.38 X 10*3/uL (0.90-5.00); Lymphocytes % (A) 26.4 %; MCH 29.7 pg (27.0-32.0); MCHC 32.4 g/dL (32.0-37.0); MCV 91.6 FL (80.0-97.0); Mean Platelet Volume 9.8 FL (9.5-12.2); Monocytes # (A) 0.48 X 10*3/uL (0.20-1.00); Monocytes % (A) 9.2 %; NRBC Per 100 WBC 0 X 10*3/uL (0.00-0.01); Neutrophils # (A) 3.11 X 10*3/uL (1.80-7.70); Neutrophils % (A) 59.4 %; Platelet Count 324 X 10*3/uL (140-440); RBC 4.65 X 10*6/uL (4.40-5.60); RDW 12.9 % (11.5-14.5); WBC 5.23 X 10*3/uL (4.50-10.00)
[2023-08-14 16:43] LABS: ALT 22 U/L (10-49); AST 23 U/L (14-35); Albumin 4.5 g/dL (3.8-4.9); Albumin/Globulin Ratio 1.88 Ratio (1.60-3.17); Alkaline Phosphatase 57 U/L (41-126); BUN/Creat Ratio 23.88 Ratio (12.00-20.00); Blood Urea Nitrogen 19.1 mg/dL (9.0-27.0); Calcium 9.8 mg/dL (8.7-10.3); Carbon Dioxide 27.1 mmol/L (21.6-31.8); Chloride 103 mmol/L (96-109); Globulin 2.4 g/dL (1.6-3.3); Glucose 107 mg/dL (70-110); LDL Cholesterol,Calculated 169.3 mg/dL (0.0-131.0); Potassium 4.6 mmol/L (3.5-5.5); Sodium 142 mmol/L (135-145); T4, Free (Free Thyroxine) 1.22 ng/dL (0.80-1.80); Total Bilirubin 0.4 mg/dL (0.3-1.2); Total Protein 6.9 g/dL (6.2-8.2); VLDL Calculation 10.12 mg/dL (5.00-40.00)
[2023-08-14 17:34] LABS: PSA Annual Screen 0.984 ng/mL (0.000-4.000)
== END | disposition home or self-care (01) ==
LOC: LABWHC1 08:38
PROVIDERS: ATTEND Internal Medicine Critical Care Medicine
DX: Z00.00 Encounter for general adult medical examination without abnormal findings (principal); Z12.5 Encounter for screening for malignant neoplasm of prostate; C37 Malignant neoplasm of thymus; E78.5 Hyperlipidemia, unspecified; E03.9 Hypothyroidism, unspecified; Z86.39 Personal history of other endocrine, nutritional and metabolic disease
CPT/HCPCS: 84439; 80061; 80053; 84443; 85025; 82306; 83036; 36415; G0103